=== PATIENT | female | born 1960 | race Caucasian/White ===

== ENCOUNTER → 2017-06-14 | Outpatient (CLI) | payer MEDICAID ==
[~2017-06-14] MED LIST: ASMANEX TW0.22 MG/A1 IH; CLONAZEPAM 1MG T1 MG PO; DIPHENHYDRAMINE50 MG PO; FLUCONAZOLE 10100 MG PO; FLUTICASONE 50M16 GM; GABAPENTIN300 MG PO; GLIMEPIRIDE 2MG2 MG PO; HYDROXYZINE50 MG PO; IMODIUM 2MG. CAP2 MG PO; LOSARTAN POTASS50 MG PO; NITROGLYCERIN0.4 MG SL; PANTOPRAZOLE SO40 MG PO; PROZAC 20MG CAP20 MG PO; REGLAN 5MG TABLE5 MG PO; ROBAXIN 500 MG500 MG PO; TRAZODONE100 MG PO; VENTOLIN H0.09 MG/AC IH
--- NOTE | 2017-06-15 10:20 | RADIOLOGY REPORT PS360 ---
MRI-C-SPINE W/O, MRI-3D RENDERING/MYELOGRAM HISTORY: NECK PAIN right shoulder pain neck pain. Bilateral hand numbness headache Patient Age: 56 years: Female Ordering Physician: MARTHA BARNHART CRNA TECHNIQUE: Sagittal T1-T2 STIR along with axial T2 gradient echo and T1 images. 3-D MRI myelogram included COMPARISON :None available FINDINGS The cervical vertebral bodies appear intact. No subluxation is satisfactory alignment. Prominent Cervical spondylosis-. Multilevel degenerative disc changes posterior ridging and posterior endplate marginal osteophytes most evident throughout the mid and lower C-spine.. Moderate volume underlying osseous canal Cranial cervical junction appears normal C2/3. Disc and cord normal C3/4 degenerative disc space narrowing.. Prominent leftward hard disc/& posterior spurring to the left paracentral. Features Indents thecal sac & very slightly effaces the left anterior margin cervical cord,. Spurring also yields mild encroachment upon lateral recess & entrance to left foramen C4/5 degenerative disc space narrowing.. Diffuse Disc/osteophyte features posteriorly..-Prominent hard disc & large focal spurring right paracentral- prominent indenting right lateral aspect of the thecal sac & mildly effacing the right anterior margin of cervical cord .. Small small central disc protrusion noted as well. Less pronounced hypertrophic ridging to the left. Overall Features do yield spinal mild/moderate spinal stenosis and markedly efface the thecal sac at right paracentral as well as encroach upon right right lateral recess and entrance to the right foramen.. These features best on axial images at this level... I would recommend plain film correlation to further document the posterior spurring at these several disc levels C5/6. Marked degenerative disc space narrowing. Again similar pattern with diffuse posterior endplate marginal osteophytes, posterior ridging. Mixed mainly hard disc is seen to the left and right paracentral region-effacing thecal sac and mildly effacing the cervical cord. Features Most evident at left paracentral more so than right. Resulting mild/moderate central canal stenosis at this level It. C6/7 disc space narrowing. Less pronounced posterior endplate hypertrophy, posterior ridging at this level. Which does slightly indent the thecal sac and just abuts the anterior aspect cervical cord. Mild posterior element hypertrophy also indents the posterior aspect of thecal sac as well as this level. Overall yields the mild/moderate central canal stenosis this level as well Also as mild facet arthropathy likely this level . C7/T1 disc intact. T1/T2 disc intact T2/T3 of minimal posterior endplate spurring to the right T3/4 and T4/5.. Generous posterior spurring indenting thecal sac to the left of midline noted . 3-D MRI myelogram image set:.. Generous Central canal stenosis with narrowing of the thecal sac most pronounced at at C6/7, C5/ C6/, C4/5 with indentation anterior left aspect of thecal sac also noted at C 3/4. IMPRESSION 1 Prominent cervical spondylosis :. Multilevel spinal stenosis Multilevel degenerative disc changes with posterior endplate hypertrophic changes & spurring yielding multilevel spinal stenosis, most evident at C6/7, C5/6, C4/5 levels . Also leftward hard disc/spur C3/4 2... Regarding right sided symptoms:. C4/5.: Prominent large spur right paracentral at C 4/5 indenting thecal sac & encroachment upon right recess & entry of right neural foramen.Mild/moderate central canal stenosis C5/6.. Generous primarily hard disc right & left paracentral. Yields moderate encroachment upon right foramen. Mild/moderate central canal stenosis C6-C7: posterior ridging & spurring yielding mild foraminal encroachment bilateral. Mild/moderate central canal 3.. findings at other levels also noted and detailed in text 4.. Recommend plain film correlation to correlate the prominent posterior spurring and osteophytes.
== END ==
LOC: RAD 12:51
DX: M54.2 Cervicalgia (principal)